=== PATIENT | male | born 1970 | race Two or more races ===

== ENCOUNTER 2018-04-12 19:18 | Emergency (ER) | payer MEDICAID, OTHER ==
[~2018-04-12] VITALS: Ht 167.6 cm; Wt 86.3 kg
[2018-04-12 19:21] VITALS: BP 137/93
[2018-04-12] MEDS ORDERED: NYST1000 PO (20:08)
[2018-04-12] MEDS ORDERED: IBUP-1984 PO (20:10)
--- NOTE | 2018-04-13 15:37 | NUR ---
Patient called regarding last visit and that he was prescribed nystatin for thrush. Patient states that he has tried different pharmacy's and it is on back order. Spoke with Dr. Stein who gave order to be called in for Diflucan 100 mg PO once daily x5 days with no refills. Discussed this with patient at which he agreed to the change and requested medication be called into [facility] pharmacy in [place]. Medication called into pharmacy at 1535, will be ready CARMEN per pharmacy.
== END 2018-04-12 20:20 | disposition home or self-care (01) ==
LOC: ER 19:18
DX: B37.9 Candidiasis, unspecified (principal); F17.200 Nicotine dependence, unspecified, uncomplicated; F12.90 Cannabis use, unspecified, uncomplicated; Z88.0 Allergy status to penicillin
CPT/HCPCS: 99283

== ENCOUNTER 2018-04-18 14:44 | Emergency (ER) | payer MEDICAID, OTHER ==
[~2018-04-18] VITALS: Ht 170.2 cm; Wt 92.7 kg
[~2018-04-18 14:44] MED LIST: IBUP-1984 PO; NYST1000 PO
[2018-04-18] MEDS ORDERED: FLUC150T PO (16:02)
[2018-04-18] MEDS ORDERED: IBUP-1984 PO (16:02)
[2018-04-18] MEDS ORDERED: NYST1000 PO (16:18)
[2018-04-18 16:19] VITALS: BP 140/87
== END 2018-04-18 16:21 | disposition home or self-care (01) ==
LOC: ER 14:44
DX: B37.0 Candidal stomatitis (principal); F12.90 Cannabis use, unspecified, uncomplicated; Z98.890 Other specified postprocedural states; Z88.0 Allergy status to penicillin; Z79.899 Other long term (current) drug therapy
CPT/HCPCS: 99283

== ENCOUNTER 2018-05-16 10:05 | Emergency (ER) | payer MEDICAID ==
[~2018-05-16] VITALS: Ht 170.2 cm; Wt 90.9 kg
[2018-05-16] MEDS ORDERED: FLUC100T PO ×2 (11:37→11:42)
[2018-05-16 11:55] VITALS: BP 127/63
== END 2018-05-16 11:56 | disposition home or self-care (01) ==
LOC: ER 10:06
DX: B37.9 Candidiasis, unspecified (principal); R11.2 Nausea with vomiting, unspecified; R19.7 Diarrhea, unspecified; F12.90 Cannabis use, unspecified, uncomplicated; Z88.0 Allergy status to penicillin
CPT/HCPCS: 99284

== ENCOUNTER 2018-06-02 21:15 | Emergency (ER) | payer MEDICAID ==
[~2018-06-02] VITALS: Ht 170.2 cm; Wt 93.0 kg
[~2018-06-02 21:15] MED LIST changes: +FLUC100T PO; -IBUP-1984 PO; -NYST1000 PO
[2018-06-02 21:24] VITALS: BP 146/90
== END 2018-06-02 23:05 | disposition home or self-care (01) ==
LOC: ER 21:16
DX: J34.89 Other specified disorders of nose and nasal sinuses (principal); R61 Generalized hyperhidrosis
CPT/HCPCS: 99281